=== PATIENT | female | born 1950 | race Caucasian/White ===

== ENCOUNTER 2016-12-25 04:07 | Emergency (ER) | payer MEDICARE, OTHER ==
[~2016-12-25] VITALS: Ht 162.6 cm; Wt 61.4 kg
[2016-12-25] MEDS ORDERED: OXYC10 PO (04:28)
[2016-12-25] MEDS ORDERED: LORA0.5T2 PO (04:28)
[2016-12-25] MEDS ORDERED: GABA-529 PO (04:29)
[2016-12-25] MEDS ORDERED: LIDOCAINE HCL 2% 5 ML JELLY TP ONE (04:45)
[2016-12-25] MEDS ORDERED: KETOROLAC TROMETHAMINE 60 MG/2 ML VIAL IM ONE (04:45)
[2016-12-25 06:30] VITALS: BP 135/69
== END 2016-12-25 07:29 | disposition home or self-care (01) ==
LOC: EMS 04:09
DX: R10.2 Pelvic and perineal pain (principal); F17.210 Nicotine dependence, cigarettes, uncomplicated; Z90.710 Acquired absence of both cervix and uterus
CPT/HCPCS: 96372; 99283; J1885

== ENCOUNTER 2017-06-18 03:00 | Emergency (ER) | payer MEDICARE, OTHER ==
[~2017-06-18] VITALS: Ht 165.1 cm; Wt 61.4 kg
[~2017-06-18 03:00] MED LIST: GABA-529 PO; LORA0.5T2 PO; OXYC10 PO
[2017-06-18] MEDS ORDERED: DSS100 PO (03:06)
[2017-06-18] MEDS ORDERED: LORA10TA7 PO (03:06)
[2017-06-18] MEDS ORDERED: DIAZ10 PO (03:10)
[2017-06-18] MEDS ORDERED: MethylPREDNISolone SOD SUCC 125 MG/2 ML VIAL IM ONE (04:30)
[2017-06-18] MEDS ORDERED: DiphenhydrAMINE HCL 50 MG/ML VIAL IM ONE (04:30)
[2017-06-18 04:52] LABS: BASOPHILS % (AUTO) 0.2 % (0.0-2.0); EOSINOPHILS % (AUTO) 0.5 % (1.0-6.0); HEMATOCRIT 30.3 % (36-46); HEMOGLOBIN 10.7 g/dL (12.0-16.0); LYMPHOCYTES # (AUTO) 1.8 K/uL (1.0-4.8); LYMPHOCYTES % (AUTO) 31.3 % (22.0-44.0); MEAN CORPUSCULAR HGB CONC 35.3 G/dL (31.0-37.0); MEAN CORPUSCULAR VOLUME 99 fL (80-100); MONOCYTES # (AUTO) 0.5 K/uL (0.1-1.0); MONOCYTES % (AUTO) 8.6 % (2.0-9.0); NEUTROPHILS # (AUTO) 3.5 K/uL (1.8-7.7); NEUTROPHILS % (AUTO) 59.4 % (40.0-70.0); PLATELET COUNT (AUTO) 225 K/uL (150-450); RED BLOOD CELL COUNT(AUTO) 3.05 MIL/uL (4.00-5.20); RED CELL DISTRIBUTION WIDTH 13.1 % (11.5-14.5); WHITE BLOOD COUNT (AUTO) 5.9 K/uL (4.5-11.0)
[2017-06-18 04:59] LABS: CALCIUM, TOTAL 8.2 mg/dL (8.8-10.5); CREATININE 1.04 mg/dL (0.60-1.30); POTASSIUM 3.6 mmol/L (3.5-5.1)
[2017-06-18 05:00] VITALS: BP 125/70
== END 2017-06-18 06:06 | disposition home or self-care (01) ==
LOC: EMS 03:01
DX: L50.0 Allergic urticaria (principal); E87.1 Hypo-osmolality and hyponatremia; F17.210 Nicotine dependence, cigarettes, uncomplicated
CPT/HCPCS: 36415; 80048; 85025; 96372; 99284; 99406; J1200; J2930

== ENCOUNTER 2017-11-24 21:53 | Inpatient (IN) | payer MEDICARE, OTHER ==
[~2017-11-24] VITALS: Ht 160 cm; Wt 64.0 kg
[~2017-11-24 21:53] MED LIST changes: +DIAZ10 PO; +DSS100 PO; -GABA-529 PO; -LORA0.5T2 PO; +LORA10TA7 PO; -OXYC10 PO
[2017-11-24] MEDS ORDERED: OMEP10 PO (22:45)
[2017-11-24] MEDS ORDERED: HYDR-308 PO (22:45)
[2017-11-24] MEDS ORDERED: LORA0.5T2 PO (22:45)
[2017-11-24 22:59] LABS: AMPHET/METH SCREEN,URINE NEGATIVE (NEGATIVE); BARBITURATE SCREEN, URINE NEGATIVE (NEGATIVE); BENZODIAZEPINES SCREEN,URINE POSITIVE (NEGATIVE); CANNABINOID SCREEN,URINE NEGATIVE (NEGATIVE); COCAINE SCREEN,URINE NEGATIVE (NEGATIVE); METHADONE SCREEN, URINE NEGATIVE (NEGATIVE); OPIATE SCREEN,URINE POSITIVE (NEGATIVE); PHENCYCLIDINE SCREEN,URINE NEGATIVE (NEGATIVE)
[2017-11-24 23:12] LABS: ANION GAP 8 mmol/L (8-16); CALCIUM, TOTAL 9.1 mg/dL (8.8-10.5); CARBON DIOXIDE 29 mmol/L (22-29); CHLORIDE 95 mmol/L (98-107); CREATININE 0.91 mg/dL (0.60-1.30); GLOMERULAR FILTR. RATE CALC > 60 mL/min (>60); GLUCOSE,RANDOM 93 mg/dL (70-110); POTASSIUM 4.5 mmol/L (3.5-5.1); SODIUM SERUM 132 mmol/L (136-145); UREA NITROGEN, BLOOD 10 mg/dL (7-18)
[2017-11-24 23:14] LABS: BASOPHILS % (AUTO) 0.5 % (0.0-2.0); EOSINOPHILS % (AUTO) 1.5 % (1.0-6.0); HEMATOCRIT 36.6 % (36-46); HEMOGLOBIN 12.7 g/dL (12.0-16.0); LYMPHOCYTES # (AUTO) 2.9 K/uL (1.0-4.8); LYMPHOCYTES % (AUTO) 36.8 % (22.0-44.0); MEAN CORPUSCULAR HEMOGLOBIN 33.8 pg (26.0-34.0); MEAN CORPUSCULAR HGB CONC 34.8 G/dL (31.0-37.0); MEAN CORPUSCULAR VOLUME 97 fL (80-100); MONOCYTES # (AUTO) 0.5 K/uL (0.1-1.0); MONOCYTES % (AUTO) 5.9 % (2.0-9.0); NEUTROPHILS # (AUTO) 4.4 K/uL (1.8-7.7); NEUTROPHILS % (AUTO) 55.3 % (40.0-70.0); PLATELET COUNT (AUTO) 198 K/uL (150-450); RED BLOOD CELL COUNT(AUTO) 3.76 MIL/uL (4.00-5.20); RED CELL DISTRIBUTION WIDTH 13.3 % (11.5-14.5)
[2017-11-24 23:18] LABS: ALANINE AMINOTRANSFERASE 25 U/L (12-78); ALBUMIN 4.2 g/dL (3.4-5.0); ALKALINE PHOSPHATASE 111 U/L (46-116); ASPARTATE AMINOTRANSFERASE 33 U/L (15-37); BILIRUBIN,TOTAL 0.2 mg/dL (0.1-1.0); TOTAL PROTEIN, SERUM 7.8 g/dL (6.4-8.2)
[2017-11-25] MEDS ORDERED: DONNATAL/LIDOCAINE/MAALOX 55 ML BOTTLE PO ONE
[2017-11-25] MEDS ORDERED: HALOPERIDOL 5 MG TABLET PO PRN (00:15)
[2017-11-25 03:39] VITALS: BP 136/77
[2017-11-25] MEDS ORDERED: ONDANSETRON HCL 4 MG TABLET PO ONE (07:45)
[2017-11-25] MEDS: LORazepam 2 MG TABLET PO PRN (08:16)
[2017-11-25] MEDS ORDERED: LOPERAMIDE HCL 2 MG CAPSULE PO PRN (09:00)
[2017-11-25] MEDS ORDERED: MAGNESIUM HYDROXIDE SUSPENSION 30 ML UDCUP PO PRN (09:00)
[2017-11-25] MEDS ORDERED: MAG HYDROX/AL HYDROX/SIMETH ES 30 ML SUSPENSION UDCUP PO PRN (09:00)
[2017-11-25] MEDS ORDERED: PETROLATUM,WHITE 71 GM JELLY TP PRN (09:00)
[2017-11-25] MEDS ORDERED: BACITRACIN 28.4 GM OINTMENT TP PRN (09:00)
[2017-11-25] MEDS ORDERED: ALBUTEROL SULFATE HFA 90 MCG/PUFF 8 GM INHALER IH PRN (09:00)
[2017-11-25] MEDS: OMEPRAZOLE 20 MG CAPSULE PO SCH ×2 (09:00→17:52)
[2017-11-25] MEDS ORDERED: CloNIDine HCL 0.1 MG TABLET PO PRN (09:00)
[2017-11-25] MEDS: DOCUSATE SODIUM 100 MG CAPSULE PO SCH (09:00)
[2017-11-25] MEDS ORDERED: DICLOFENAC SODIUM 1% 100 GM GEL [2GM] TP PRN (09:00)
[2017-11-25] MEDS ORDERED: ONDANSETRON HCL 4 MG TABLET PO PRN (09:00)
[2017-11-25] MEDS ORDERED: BENZOCAINE/MENTHOL LOZENGE [8 LOZENGES/PACKET] MM PRN (09:45)
[2017-11-25] MEDS: IBUPROFEN 600 MG TABLET PO PRN (13:37)
[2017-11-25] MEDS: DIAZEPAM 10 MG TABLET PO PRN (14:34)
[2017-11-25 15:08] VITALS: BP 117/70
[2017-11-25 20:35] VITALS: BP 122/77
[2017-11-25] MEDS: TraZODone HCL 50 MG TABLET PO SCH (20:40)
[2017-11-25] MEDS: ZOLPIDEM TARTRATE 10 MG TABLET PO PRN (23:01)
[2017-11-26 01:16] VITALS: BP 126/84
[2017-11-26] MEDS: DIAZEPAM 10 MG TABLET PO PRN ×2 (01:18→13:04)
[2017-11-26 03:50] VITALS: BP 126/80
[2017-11-26] MEDS: IBUPROFEN 600 MG TABLET PO PRN ×2 (03:58→12:18)
[2017-11-26] MEDS: LORazepam 2 MG TABLET PO PRN ×2 (04:40→17:08)
[2017-11-26 08:50] VITALS: BP 128/90
[2017-11-26] MEDS: OMEPRAZOLE 20 MG CAPSULE PO SCH (08:53)
[2017-11-26] MEDS: ACETAMINOPHEN 325 MG TABLET PO PRN (08:58)
[2017-11-26] MEDS: DOCUSATE SODIUM 100 MG CAPSULE PO SCH (09:00)
[2017-11-26 12:18] VITALS: BP 125/87
[2017-11-26 16:00] VITALS: BP 120/76
[2017-11-26] MEDS: TraZODone HCL 50 MG TABLET PO SCH (20:03)
[2017-11-26] MEDS: ZOLPIDEM TARTRATE 10 MG TABLET PO PRN (21:09)
[2017-11-27 02:20] VITALS: BP 133/78
[2017-11-27] MEDS: IBUPROFEN 600 MG TABLET PO PRN ×2 (02:26→08:58)
[2017-11-27] MEDS: DIAZEPAM 10 MG TABLET PO PRN (02:31)
[2017-11-27] MEDS ORDERED: OMEPRAZOLE 20 MG CAPSULE PO ONE (08:00)
[2017-11-27] MEDS: LORazepam 2 MG TABLET PO PRN (08:13)
[2017-11-27 08:58] VITALS: BP 114/66
[2017-11-27] MEDS: DOCUSATE SODIUM 100 MG CAPSULE PO SCH (09:00)
[2017-11-27] MEDS ORDERED: DSS100 PO (10:31)
[2017-11-27] MEDS ORDERED: OMEP20 PO (10:32)
[2017-11-27] MEDS ORDERED: TRAZ-144 PO (10:33)
[2017-11-27 11:10] VITALS: BP 128/84
[2017-11-27] MEDS: ACETAMINOPHEN 325 MG TABLET PO PRN (11:15)
[2017-11-28] MEDS ORDERED: OMEPRAZOLE 20 MG CAPSULE PO SCH (07:00)
== END 2017-11-27 14:33 | disposition home or self-care (01) | DRG 881 ==
LOC: EMS 21:55 → AHU 11-25 03:00 → 3EX 11-25 18:20
PROVIDERS: ADMIT Psychiatry & Neurology Psychiatry; ATTEND Psychiatry & Neurology Child & Adolescent Psychiatry
DX: F32.9 Major depressive disorder, single episode, unspecified (principal); E87.1 Hypo-osmolality and hyponatremia; R45.851 Suicidal ideations; F10.10 Alcohol abuse, uncomplicated; F17.210 Nicotine dependence, cigarettes, uncomplicated; F43.10 Post-traumatic stress disorder, unspecified; G47.00 Insomnia, unspecified; J44.9 Chronic obstructive pulmonary disease, unspecified; K21.9 Gastro-esophageal reflux disease without esophagitis; M19.90 Unspecified osteoarthritis, unspecified site; G89.29 Other chronic pain; Z96.659 Presence of unspecified artificial knee joint; F41.9 Anxiety disorder, unspecified; Z79.899 Other long term (current) drug therapy; Z90.710 Acquired absence of both cervix and uterus; Z59.0 Homelessness
CPT/HCPCS: 99285; 99406; G0480; Q0162